=== PATIENT | female | born 1950 | race Caucasian/White ===

== ENCOUNTER 2016-04-19 14:00 | Outpatient (RCR) ==
--- NOTE | 2016-04-08 11:08 | RS.OPPTEV2 ---
Date of Note: 04/08/16 Visit #: 1 Date of Evaluation: 04/08/16 Payer Source: MEDICARE Date of Onset/Injury/Change in Status: 03/21/15 Surgery Performed?: No Treatment Diagnosis: LBP History of Condition/Mechanism of Injury:: She has had multple injuries to the coccygeal region over the past year. She has been seeing Dr. Canas for pain managment injections. She has had good success for about a month following her last injection. She was referred to PT for eval and treatment at this point. She states she has constant discomfort but that her intensity varies based on what she does and doesn't do. Shopping on concrete floors is very bad. She is having very poor sleep quality due to the pain. She states she doesn't sleep very much at all due to the pain and last night was unable to sleep more than an hr at most. Prior Level of Function.....Patient was independent with: ADL's, Self Care, Caregiving, Ambulation/Mobility, Community Integration/Access Level of Function: Independent in community. Functional Limitations: Sleep, Lifting, Carrying, Standing, Bending, Squatting, Ambulation, Community Access/Integration Treatment Side (optional): Right Medical History Medical History: Hypertension, Arthritis Surgical History: Knee Replacement, Shoulder Replacement Surgical History Comments:: shoulder surgery , kyphoplasty Smoking Status: Never smoker Hx Home Medications: Tamadol, Meloxicam Pain Assessment - Pain Description Pain Location: Right coccygeal pain that radiates into the right groin and adductor region of the thigh. Pain Description: Burning, Sharp Current Pain Intensity: 1/10 Worst Pain Intensity: 7/10 Functional Outcome Measure Oswestry LBP: 27 (54%) - G Codes & Severity Modifier G Codes & Modifier: Current: Mobility, Moving and Walking Around - CK. Goal: CJ Source of G Code score: Oswerrty Gait - Gait Pattern General Gait Pattern Observation: Ataxic Gait, Decrease Weight Bear (R), Decrease Weight Shift (R), Short Stance Time (R) General Range of Motion: BLE ROM WNLs. Muscle Strength: BLE strength WNLs. - ROM Lumbar Flexion: Hand reach to Mid-Thighs Sidebending to Left: Reach to Lateral Joint Line Sidebending to Right: Reach to Mid-thigh - Strength Trunk Flexion: 3+ Fair+ Trunk Rotation: 4 Good (Left lumbar rotation 4/5, right normal) - Special Tests SLR Test: Negative Left, Negative Right Seated Dural Stretch Test: Negative Left, Negative Right SI Joint Compression: Negative Palpation Palpation Findings: Tenderness (Muscle tightness of the lumbosacral region. ) Comments:: Tender points in the right hip adductor region. Sensation - Sensation Right Lower Extremity: Impaired (Numbness in the coccyx and right thigh intermittently.) Sensation Description: Numbness Interventions - Exercise/Activities/Manual Therapy Exercises/Activities: NA Manual Therapy: Myofascial stretching and moblization SI region tissue, TP releases of right hip adductor reigion tender points. - Charges Total Direct Minutes: 20 Total Treatment Time: 60 Procedures billed for this date of service:: PT [place] (Med) & manual therapy Assessment Assessment: Coccygeal area pain mainly right and right thigh pain causing antalgic gait intermittently and limitatin of activities. Patient Education: Education of diagnosis, Activity Modification, Education of Plan of Care Rehab Potential: Good Short Term Goals Goal #1: Intermittent pain/discomfort. Goal to be met by: 04/30/16 Goal #2: Patient is able to sleep 25% better due to decreased pain. Goal to be met by: 04/30/16 Goal #3: Patient reports she is able to tolerate shopping with min-mod pain. Goal to be met by: 04/30/16 Goal #4: Independent [facility] basic HEP. Goal to be met by: 04/30/16 Tobacco Hanger Goals Goal #1: Patient independent in HEP. Goal to be met by: 05/21/16 Goal #2: Patient sleeping 75% better due to decreased pain. Goal to be met by: 05/21/16 Goal #3: Pt to amb.functional distances w/o gt dev. Goal to be met by: 05/21/16 Goal #4: Oswestry score improved to 15/50 Goal to be met by: 05/21/16 Plan - Treatment to be Provided Procedures: Therapeutic Exercises, Therapeutic Activity, Gait Training, Manual Therapy, Massage, Patient Education Modalities: Electrical Stimulation, Ultrasound/Phonophoresis, Class IV Laser, Cryotherapy, Hot Packs, Mechanical Traction - Treatment Plan Frequency: 2-3X/wk Duration: 6 weeks ORDER # VISITS AND/OR THROUGH DATE: 05/21/2016 - Treatment Code (1) Low back pain Qualifiers: Chronicity: chronic Back pain laterality: right Sciatica presence: without sciatica Qualified Description: Chronic right-sided low back pain without sciatica Qualifier Code(s): (M54.5) Low back pain, (G89.29) Other chronic pain (2) Right thigh pain Comments: M79.856
--- NOTE | 2016-04-13 08:11 | RS.CXNS ---
Date of scheduled appointment: 04/13/16 Type: Cancel (Called yesterday and cancelled ,but reason unknown.)
--- NOTE | 2016-04-14 10:35 | RS.OPPTDN ---
Subjective Date of Note: 04/14/16 Visit #: 2 Date of Evaluation: 04/08/16 Payer Source: MEDICARE Treatment Diagnosis: LBP Current Subjective/complaints:: Reports R anterior thigh pain with walking,and coccyx pain with sitting of in supine. Pain Assessment - Pain Description Pain Location: Right coccygeal pain that radiates into the right groin and adductor region of the thigh.Reports walking alot yesterday. Pain Description: Burning, Sharp Current Pain Intensity: 2/10 - Heat/Cryotherapy Treatment: Hot Pack (20 mins. to R anterior/medial thigh,prior to exercises) Interventions - Exercise/Activities/Manual Therapy Exercises/Activities: 25 mins. total of pelvic tilts,SKTC,DKTC.Instructed in SI muscle energy techniques of resisted hip flexion,resisted knee extension in hooklying position.Patient education for sitting posture for pressure relief on the sacral region. Total minutes of Exercise: 25 Manual Therapy: NA Total minutes of Manual Therapy: 0 HOME EXERCISE PROGRAM: Pelvic tilts,SKTC,DKTC,SI muscle energy,postural awareness. - Charges Total Direct Minutes: 25 Total Treatment Time: 45 Procedures billed for this date of service:: hp,ex 2 Assessment: Patient reports relief from coccyx pain with pelvic tilts and SKTC .She also gives good return demo of exercises ,along with the SI muscle energy techniques.She is very attentive and reports less pain as she corrects her sitting posture today. Patient Education: Education of diagnosis, Body/Joint mechanics, Home Exercise Program, Home Safety, Activity Modification, Education of Plan of Care Patient demonstrates compliance with HEP?: Yes Short Term Goals Goal #1: Intermittent pain/discomfort. Goal to be met by: 04/30/16 Goal #2: Patient is able to sleep 25% better due to decreased pain. Goal to be met by: 04/30/16 Goal #3: Patient reports she is able to tolerate shopping with min-mod pain. Goal to be met by: 04/30/16 Goal #4: Independent wtih basic HEP. Goal to be met by: 04/30/16 Progress towards Goal:: Progressing Inventory Specialist Manager Goals Goal #1: Patient independent in HEP. Goal to be met by: 05/21/16 Goal #2: Patient sleeping 75% better due to decreased pain. Goal to be met by: 05/21/16 Goal #3: Pt to amb.functional distances w/o gt dev. Goal to be met by: 05/21/16 Goal #4: Oswestry score improved to 15/50 Goal to be met by: 05/21/16 Plan PLAN OF CARE EXPIRES ON:: 05/21/16 ORDER # VISITS AND/OR THROUGH DATE: 05/21/2016 PLAN: Continue Plan of Care
--- NOTE | 2016-04-16 11:33 | RS.OPPTDN ---
Subjective Date of Note: 04/16/16 Visit #: 3 Date of Evaluation: 04/08/16 Payer Source: MEDICARE Treatment Diagnosis: LBP Current Subjective/complaints:: Reports the coccyx is less painful today,but her back pain increases rather quickly when up on her feet. Pain Assessment - Pain Description Pain Location: Coccyx,R low back and T thigh. Pain Description: Burning, Sharp, Aching Current Pain Intensity: 1/10,coccyx,LBP varies - Heat/Cryotherapy Treatment: Hot Pack (20 mins.prior to exercises) Interventions - Exercise/Activities/Manual Therapy Exercises/Activities: 30 mins. total of pelvic tilts,SKTC,DKTC. SI muscle energy techniques of resisted hip flexion,resisted knee extension in hooklying position.Hip adductor stretching in supine.Patient education for sitting posture for pressure relief on the sacral region. Total minutes of Exercise: 30 Manual Therapy: NA Total minutes of Manual Therapy: 0 HOME EXERCISE PROGRAM: Pelvic tilts,SKTC,DKTC,SI muscle energy,postural awareness. - Charges Total Direct Minutes: 30 Total Treatment Time: 50 Procedures billed for this date of service:: hp,ex 2 Assessment: Patient has relief in the coccyx region more easily today,but the R hip /LE pain re-occurs rather quickly as she is walking.She was able to go approx. 150' before pain is present when entering clinic.She continues to be highly motivated to improve,very attentive and compliant to HEP.She did have discomfort ,described as stretch pain with R hip abducted in supine. Patient Education: Education of diagnosis, Body/Joint mechanics, Home Exercise Program, Home Safety, Activity Modification, Education of Plan of Care Patient demonstrates compliance with HEP?: Yes Short Term Goals Goal #1: Intermittent pain/discomfort. Goal to be met by: 04/30/16 Progress towards Goal:: Progressing Goal #2: Patient is able to sleep 25% better due to decreased pain. Goal to be met by: 04/30/16 Goal #3: Patient reports she is able to tolerate shopping with min-mod pain. Goal to be met by: 04/30/16 Goal #4: Independent [facility] basic HEP. Goal to be met by: 04/30/16 Progress towards Goal:: Progressing Plastic Surgery Manager Goals Goal #1: Patient independent in HEP. Goal to be met by: 05/21/16 Progress towards goal: Progressing Goal #2: Patient sleeping 75% better due to decreased pain. Goal to be met by: 05/21/16 Goal #3: Pt to amb.functional distances w/o gt dev. Goal to be met by: 05/21/16 Goal #4: Oswestry score improved to 15/50 Goal to be met by: 05/21/16 Plan PLAN OF CARE EXPIRES ON:: 05/21/16 ORDER # VISITS AND/OR THROUGH DATE: 05/21/2016 PLAN: Continue Plan of Care
--- NOTE | 2016-04-19 15:26 | RS.OPPTDN ---
Subjective Date of Note: 04/19/16 Visit #: 4 Date of Evaluation: 04/08/16 Payer Source: MEDICARE Treatment Diagnosis: LBP Current Subjective/complaints:: Reports hurting a little more currently,but has been on her feet alot today.She is doing her HEP. Pain Assessment - Pain Description Pain Location: Coccyx,R low back and T thigh. Pain Description: Burning, Sharp, Aching Current Pain Intensity: 2/10,coccyx,R LBP and R thigh 3/10 - Heat/Cryotherapy Treatment: Hot Pack (20 mins. to lumbar ,prior to exercises) Interventions - Exercise/Activities/Manual Therapy Exercises/Activities: 30 mins. total of pelvic tilts,SKTC,DKTC. SI muscle energy techniques of resisted hip flexion,resisted knee extension in hooklying position.Hip adductor stretching in supine.,after contract-relax method to this same muscle group. Total minutes of Exercise: 30 Manual Therapy: NA Total minutes of Manual Therapy: 0 HOME EXERCISE PROGRAM: Pelvic tilts,SKTC,DKTC,SI muscle energy,postural awareness. - Charges Total Direct Minutes: 30 Total Treatment Time: 50 Procedures billed for this date of service:: hp,ex 2 Assessment: Patient reports sligthly elevated pain today in the R htigh with standing ,as opposed to before treatment.The coccyx pain is relieved by change of position,and is decreased overall since injections at Dr. Canas's approx. one month ago.She only reports stretch discomfort with R hip abducted to normal end range when in supine today.The sharp pain continues to be with weight -bearing. Patient Education: Education of diagnosis, Body/Joint mechanics, Home Exercise Program, Home Safety, Activity Modification, Education of Plan of Care Patient demonstrates compliance with HEP?: Yes Short Term Goals Goal #1: Intermittent pain/discomfort. Goal to be met by: 04/30/16 (elevated after session today) Progress towards Goal:: Regressing Goal #2: Patient is able to sleep 25% better due to decreased pain. Goal to be met by: 04/30/16 Progress towards Goal:: No Change Goal #3: Patient reports she is able to tolerate shopping with min-mod pain. Goal to be met by: 04/30/16 Progress towards Goal:: No Change Goal #4: Independent wtih basic HEP. Goal to be met by: 04/30/16 Progress towards Goal:: Progressing Sandfill Operator Goals Goal #1: Patient independent in HEP. Goal to be met by: 05/21/16 Progress towards goal: Progressing Goal #2: Patient sleeping 75% better due to decreased pain. Goal to be met by: 05/21/16 Goal #3: Pt to amb.functional distances w/o gt dev. Goal to be met by: 05/21/16 Goal #4: Oswestry score improved to 15/50 Goal to be met by: 05/21/16 Plan PLAN OF CARE EXPIRES ON:: 05/21/16 ORDER # VISITS AND/OR THROUGH DATE: 05/21/2016 PLAN: Continue Plan of Care
== END 2016-04-20 ==
PROVIDERS: ATTEND Nurse Practitioner
DX: M48.06 Spinal stenosis, lumbar region (principal); M54.5 Low back pain; G89.29 Other chronic pain; M79.651 Pain in right thigh

== ENCOUNTER 2016-05-14 13:00 | Outpatient (RCR) ==
--- NOTE | 2016-04-22 16:44 | RS.OPPTDN ---
Subjective Date of Note: 04/22/16 Visit #: 3 Date of Evaluation: 04/08/16 Payer Source: MEDICARE Treatment Diagnosis: LBP Current Subjective/complaints:: Patient c/o increased pain since her last session. She wonders if stretching elevated her pain. She c/o soreness to the R upper thigh and in coccyx region. She does say heat relieves and wants to continue prior to therex. Pain Assessment - Pain Description Pain Location: Coccyx,R low back and T thigh. Current Pain Intensity: Increased today - Heat/Cryotherapy Treatment: Hot Pack (20 mins and during therex. mid to low back in supine) Interventions - Exercise/Activities/Manual Therapy Exercises/Activities: 22 mins. total of passive stretching (gentle) to SKTC, HS , Piriformis bilaterally x 3. Patient performs trunk exercises of : Pelvic tilts, Pillow squeezes, isometric hip flexion/abd, QS, and SLR. All x 12 reps. Manual Therapy: NA HOME EXERCISE PROGRAM: Pelvic tilts,SKTC,DKTC,SI muscle energy,postural awareness. - Charges Total Direct Minutes: 22 Total Treatment Time: 32 Procedures billed for this date of service:: hp, yudi Assessment: Patient with elevated pain since last session. Modified therex slightly and more gentler exercises which eased pain today. Patient Education: Education of diagnosis, Body/Joint mechanics, Home Exercise Program, Home Safety, Activity Modification, Education of Plan of Care Patient demonstrates compliance with HEP?: Yes Short Term Goals Goal #1: Intermittent pain/discomfort. Goal to be met by: 04/30/16 (elevated after session today) Progress towards Goal:: Regressing Goal #2: Patient is able to sleep 25% better due to decreased pain. Goal to be met by: 04/30/16 Progress towards Goal:: No Change Goal #3: Patient reports she is able to tolerate shopping with min-mod pain. Goal to be met by: 04/30/16 Progress towards Goal:: No Change Goal #4: Independent wtih basic HEP. Goal to be met by: 04/30/16 Progress towards Goal:: Progressing Group Home Goals Goal #1: Patient independent in HEP. Goal to be met by: 05/21/16 Progress towards goal: Progressing Goal #2: Patient sleeping 75% better due to decreased pain. Goal to be met by: 05/21/16 Goal #3: Pt to amb.functional distances w/o gt dev. Goal to be met by: 05/21/16 Goal #4: Oswestry score improved to 15/50 Goal to be met by: 05/21/16 Plan PLAN OF CARE EXPIRES ON:: 05/21/16 ORDER # VISITS AND/OR THROUGH DATE: 05/21/2016 PLAN: Progress Exercises
--- NOTE | 2016-04-27 12:03 | RS.CXNS ---
Date of scheduled appointment: 04/27/16 Reason for Cancel/NS: flu
--- NOTE | 2016-04-29 15:35 | RS.OPPTDN ---
Subjective Date of Note: 04/29/16 Visit #: 6 Date of Evaluation: 04/08/16 Payer Source: MEDICARE Treatment Diagnosis: LBP Current Subjective/complaints:: Patient doing well today. Reports no pain during exercises today. She is performing her exercises at home. Following exercises today, reports no increased pain when she sat up from supine. Pain Assessment - Pain Description Pain Location: Coccyx,R low back and T thigh. Current Pain Intensity: minimal - Heat/Cryotherapy Treatment: Hot Pack (X 20 mins to lumbar/sacral region) Interventions - Exercise/Activities/Manual Therapy Exercises/Activities: 28 mins. total of passive stretching (gentle) to SKTC, HS , Piriformis bilaterally x 3. Patient performs trunk exercises of : Pelvic tilts, Pillow squeezes, isometric hip flexion, yellow band for light resisted hip abd, QS, and SLR, bridging. All x 10 reps. Total minutes of Exercise: 28 mins Manual Therapy: NA HOME EXERCISE PROGRAM: Pelvic tilts,SKTC,DKTC,SI muscle energy,postural awareness. - Objective Findings Observations,measurements,etc.: Demonstrates forward posture at hips/lumbar during ambulation. - Charges Total Direct Minutes: 28 mins Total Treatment Time: 48 mins Procedures billed for this date of service:: HP, EX2 Assessment: Mrs. Diallo tolerates all exercises well. After sitting up from supine, she reports no signficant discomfort. She demonstrates needed progression of exercises to lumbar and pelvic stability to decrease her pain. Patient demonstrates compliance with HEP?: Yes Short Term Goals Goal #1: Intermittent pain/discomfort. Goal to be met by: 04/30/16 Progress towards Goal:: Progressing Goal #2: Patient is able to sleep 25% better due to decreased pain. Goal to be met by: 04/30/16 Progress towards Goal:: No Change Goal #3: Patient reports she is able to tolerate shopping with min-mod pain. Goal to be met by: 04/30/16 Progress towards Goal:: No Change Goal #4: Independent [facility] basic HEP. Goal to be met by: 04/30/16 Progress towards Goal:: Progressing Detention Goals Goal #1: Patient independent in HEP. Goal to be met by: 05/21/16 Progress towards goal: Progressing Goal #2: Patient sleeping 75% better due to decreased pain. Goal to be met by: 05/21/16 Goal #3: Pt to amb.functional distances w/o gt dev. Goal to be met by: 05/21/16 Goal #4: Oswestry score improved to 15/50 Goal to be met by: 05/21/16 Plan PLAN OF CARE EXPIRES ON:: 05/21/16 ORDER # VISITS AND/OR THROUGH DATE: 05/21/2016 PLAN: Progress Exercises
--- NOTE | 2016-05-04 16:40 | RS.OPPTDN ---
Subjective Date of Note: 05/04/16 Visit #: 7 Date of Evaluation: 04/08/16 Payer Source: MEDICARE Treatment Diagnosis: LBP Current Subjective/complaints:: Patient says exercises seem to be helping. She says she feels better than last week. States she still has trouble sleeping, but it is related to arms falling asleep. Pain Assessment - Pain Description Pain Location: Coccyx,R low back and T thigh. Current Pain Intensity: minimal - Heat/Cryotherapy Treatment: Hot Pack (15 mins to the mid to low back in supine) Interventions - Exercise/Activities/Manual Therapy Exercises/Activities: 28 mins. total of passive stretching (gentle) to SKTC, HS , Piriformis bilaterally x 3. Patient performs trunk exercises of : Pelvic tilts, Pillow squeezes, isometric hip flexion, yellow band for light resisted hip abd, QS, and SLR, bridging. All increased to 2 x 10 reps. Manual Therapy: NA HOME EXERCISE PROGRAM: Pelvic tilts,SKTC,DKTC,SI muscle energy,postural awareness. - Charges Total Direct Minutes: 28 Total Treatment Time: 43 Procedures billed for this date of service:: hp, ex2 Assessment: Patient linn all progressive therex well. She had some cramping to bilateral HS and calves with bridging and SLR, so the reps were lessened for rest breaks. Patient Education: Education of diagnosis, Body/Joint mechanics, Home Exercise Program, Home Safety, Activity Modification, Education of Plan of Care Patient demonstrates compliance with HEP?: Yes Short Term Goals Goal #1: Intermittent pain/discomfort. Goal to be met by: 04/30/16 Progress towards Goal:: Progressing Goal #2: Patient is able to sleep 25% better due to decreased pain. Goal to be met by: 04/30/16 Progress towards Goal:: Progressing Comments:: this is not due to her back Goal #3: Patient reports she is able to tolerate shopping with min-mod pain. Goal to be met by: 04/30/16 Progress towards Goal:: No Change Goal #4: Independent wtih basic HEP. Goal to be met by: 04/30/16 Progress towards Goal:: Progressing Complex Manager Goals Goal #1: Patient independent in HEP. Goal to be met by: 05/21/16 Progress towards goal: Progressing Goal #2: Patient sleeping 75% better due to decreased pain. Goal to be met by: 05/21/16 Goal #3: Pt to amb.functional distances w/o gt dev. Goal to be met by: 05/21/16 Goal #4: Oswestry score improved to 15/50 Goal to be met by: 05/21/16 Plan PLAN OF CARE EXPIRES ON:: 05/21/16 ORDER # VISITS AND/OR THROUGH DATE: 05/21/2016 PLAN: Progress Exercises
--- NOTE | 2016-05-06 16:46 | RS.OPPTDN ---
Subjective Date of Note: 05/06/16 Visit #: 3 Date of Evaluation: 04/08/16 Payer Source: MEDICARE Treatment Diagnosis: LBP Current Subjective/complaints:: Patient says her back is doing better, but she is having soreness to the R inner thigh. She says she is performing HEP too without difficulty. Pain Assessment - Pain Description Pain Location: no longer in the back, but to the R inner thigh Current Pain Intensity: minimal - Heat/Cryotherapy Treatment: Hot Pack (mid to low back in supine x 20 mins ) Interventions - Exercise/Activities/Manual Therapy Exercises/Activities: 28 mins. total of passive stretching (gentle) to SKTC, HS , Piriformis bilaterally x 3. Patient performs trunk exercises of : Pelvic tilts, Pillow squeezes, isometric hip flexion,progressed to red band for resisted hip abd, QS, and SLR, bridging, pelvic tilts, SAQ with 2#, DF with green tband. All increased to 2 x 10 reps. Green tband for therapy stick scap retraction. Manual Therapy: NA HOME EXERCISE PROGRAM: Pelvic tilts,SKTC,DKTC,SI muscle energy,postural awareness. - Charges Total Direct Minutes: 28 Total Treatment Time: 43 Procedures billed for this date of service:: hp, ex2 Assessment: Patient has demonstrated improved ease of all therex and little to no back pain. She still has some soreness into the R groin. Patient Education: Education of diagnosis, Body/Joint mechanics, Home Exercise Program, Home Safety, Activity Modification, Education of Plan of Care Patient demonstrates compliance with HEP?: Yes Short Term Goals Goal #1: Intermittent pain/discomfort. Goal to be met by: 04/30/16 Progress towards Goal:: Progressing Goal #2: Patient is able to sleep 25% better due to decreased pain. Goal to be met by: 04/30/16 Progress towards Goal:: Progressing Goal #3: Patient reports she is able to tolerate shopping with min-mod pain. Goal to be met by: 04/30/16 Progress towards Goal:: No Change Goal #4: Independent wtih basic HEP. Goal to be met by: 04/30/16 Progress towards Goal:: Progressing Integrated Marketing Specialist Goals Goal #1: Patient independent in HEP. Goal to be met by: 05/21/16 Progress towards goal: Progressing Goal #2: Patient sleeping 75% better due to decreased pain. Goal to be met by: 05/21/16 Goal #3: Pt to amb.functional distances w/o gt dev. Goal to be met by: 05/21/16 Goal #4: Oswestry score improved to 15/50 Goal to be met by: 05/21/16 Plan PLAN OF CARE EXPIRES ON:: 05/21/16 ORDER # VISITS AND/OR THROUGH DATE: 05/21/2016 PLAN: Progress Exercises
--- NOTE | 2016-05-11 14:34 | RS.OPPTDN ---
Subjective Date of Note: 05/11/16 Visit #: 9 Date of Evaluation: 04/08/16 Payer Source: MEDICARE Treatment Diagnosis: LBP Current Subjective/complaints:: Patient says her tailbone pain is very little to none. She she does have R thigh soreness/weakness. Pain Assessment - Pain Description Pain Location: no longer in the back, but to the R inner thigh Current Pain Intensity: minimal - Heat/Cryotherapy Treatment: Hot Pack (15 mins to mid to low back and during stretching supine) Interventions - Exercise/Activities/Manual Therapy Exercises/Activities: 28 mins. total of passive stretching (gentle) to SKTC, HS , Piriformis bilaterally x 3. Patient performs trunk exercises of : Pelvic tilts, Pillow squeezes, isometric hip flexion,progressed to red band for resisted hip abd, QS, and SLR, bridging, pelvic tilts, SAQ with 2#, DF with green tband. All increased to 2 x 10 reps. Green tband for therapy stick scap retraction. Manual Therapy: NA HOME EXERCISE PROGRAM: Pelvic tilts,SKTC,DKTC,SI muscle energy,postural awareness. - Charges Total Direct Minutes: 28 Total Treatment Time: 43 Procedures billed for this date of service:: hp, ex2 Assessment: Patient has progressed with decreased to no back pain, but does have weakness to the R thigh (anteriorally). All flexibility appears WNL today , but continues to need trunk strengthening. Patient Education: Education of diagnosis, Body/Joint mechanics, Home Exercise Program, Home Safety, Activity Modification, Education of Plan of Care Patient demonstrates compliance with HEP?: Yes Short Term Goals Goal #1: Intermittent pain/discomfort. Goal to be met by: 04/30/16 Progress towards Goal:: Progressing Goal #2: Patient is able to sleep 25% better due to decreased pain. Goal to be met by: 04/30/16 Progress towards Goal:: Progressing Goal #3: Patient reports she is able to tolerate shopping with min-mod pain. Goal to be met by: 04/30/16 Progress towards Goal:: No Change Goal #4: Independent wtih basic HEP. Goal to be met by: 04/30/16 Progress towards Goal:: Progressing Test Kitchen Home Economist Goals Goal #1: Patient independent in HEP. Goal to be met by: 05/21/16 Progress towards goal: Progressing Goal #2: Patient sleeping 75% better due to decreased pain. Goal to be met by: 05/21/16 Goal #3: Pt to amb.functional distances w/o gt dev. Goal to be met by: 05/21/16 Goal #4: Oswestry score improved to 15/50 Goal to be met by: 05/21/16 Plan PLAN OF CARE EXPIRES ON:: 05/21/16 ORDER # VISITS AND/OR THROUGH DATE: 05/21/2016 PLAN: Progress Exercises
--- NOTE | 2016-05-18 13:40 | RS.OPPTDN ---
Subjective Date of Note: 05/14/16 Visit #: 10 Date of Evaluation: 04/08/16 Payer Source: MEDICARE Treatment Diagnosis: LBP Current Subjective/complaints:: Patient c/o increased soreness to the R inner thigh. She says she was up early this morning with it. She says it has calmed slightly, but still her C/c. Reports back pain is not present. Pain Assessment - Pain Description Pain Location: no longer in the back, but to the R inner thigh Current Pain Intensity: R inner thigh pain - Heat/Cryotherapy Treatment: Hot Pack (20 mins to mid to low back and to the R inner thigh supine) Interventions - Exercise/Activities/Manual Therapy Exercises/Activities: 20 mins. total of passive stretching (gentle) to SKTC, HS , Piriformis bilaterally x 3. Patient performs trunk exercises of : Pelvic tilts, Pillow squeezes, isometric hip flexion. bridging, SAQ with 2#, DF with green tband. All increased to 2 x 10 reps. Green tband for therapy stick scap retraction. Abbreviated therex due to c/o. Manual Therapy: NA HOME EXERCISE PROGRAM: Pelvic tilts,SKTC,DKTC,SI muscle energy,postural awareness. - Charges Total Direct Minutes: 20 Total Treatment Time: 40 Procedures billed for this date of service:: hp, ex Assessment: Patient experiencing increased R adductor pain. Pain to the low back and coccyx is little to none. She is progressing with therex well, but did avoid some today due to R LE pain. Patient Education: Education of diagnosis, Body/Joint mechanics, Home Exercise Program, Home Safety, Activity Modification, Education of Plan of Care Patient demonstrates compliance with HEP?: Yes Short Term Goals Goal #1: Intermittent pain/discomfort. Goal to be met by: 04/30/16 Progress towards Goal:: Progressing Goal #2: Patient is able to sleep 25% better due to decreased pain. Goal to be met by: 04/30/16 Progress towards Goal:: Met Goal #3: Patient reports she is able to tolerate shopping with min-mod pain. Goal to be met by: 04/30/16 Progress towards Goal:: Progressing Goal #4: Independent wtih basic HEP. Goal to be met by: 04/30/16 Progress towards Goal:: Progressing Residential Goals Goal #1: Patient independent in HEP. Goal to be met by: 05/21/16 Progress towards goal: Progressing Goal #2: Patient sleeping 75% better due to decreased pain. Goal to be met by: 05/21/16 Progress towards goal: Progressing Goal #3: Pt to amb.functional distances w/o gt dev. Goal to be met by: 05/21/16 Goal #4: Oswestry score improved to 15/50 Goal to be met by: 05/21/16 Plan PLAN OF CARE EXPIRES ON:: 05/21/16 ORDER # VISITS AND/OR THROUGH DATE: 05/21/2016 PLAN: Progress Exercises
--- NOTE | 2016-05-24 15:26 | RS.PTSUM ---
Progress Note/Summary Date of Note: 05/21/16 Date of Evaluation: 04/08/16 Number of Visits: 10 Reporting Period for this Progress Note: 04/08/16 through 05/14/16 Current Complaints/Gains: Patient reports less back and SI joint pain, but now her c/c is right groin soreness. Patient is performing exercises at home and feels it has helped. Objective Measurements/Presentation: Demonstrates improved flexibility with piriformis and HS. Oswestry score is slightly improved. G Codes: Mobility current CK. Mobility goal CJ Source of G Code Score: Oswestry LBP scale 40% impairment. - Short Term Goals Goal #1: Intermittent pain/discomfort. Goal to be met by: 04/30/16 Progress towards Goal:: Progressing Goal #2: Patient is able to sleep 25% better due to decreased pain. Goal to be met by: 04/30/16 Progress towards Goal:: Met Goal #3: Patient reports she is able to tolerate shopping with min-mod pain. Goal to be met by: 04/30/16 Progress towards Goal:: Progressing Goal #4: Independent [facility] basic HEP. Goal to be met by: 04/30/16 Progress towards Goal:: Progressing - [facility] Goals Goal #1: Patient independent in HEP. Goal to be met by: 05/21/16 Progress towards goal: Progressing Goal #2: Patient sleeping 75% better due to decreased pain. Goal to be met by: 05/21/16 Progress towards goal: Progressing Goal #3: Pt to amb.functional distances w/o gt dev. Goal to be met by: 05/21/16 Progress towards goal: Met Goal #4: Oswestry score improved to 15/50 Goal to be met by: 05/21/16 Progress towards goal: Partially Met - Assessment Assessment of Improvement/Progress: Will continue for 1-2 more sessions for continued stretching and summary of HEP. Summary: Patient has made progress towards goals., Patient demonstrates potential to gain increased function with therapy - Plan Plan: Complete remaining visits on current order. PLAN OF CARE EXPIRES ON:: 05/21/16 ORDER # VISITS AND/OR THROUGH DATE: 05/21/2016
== END 2016-05-18 ==
PROVIDERS: ATTEND Nurse Practitioner
DX: M48.00 Spinal stenosis, site unspecified (principal); M54.5 Low back pain

== ENCOUNTER 2016-05-21 14:00 | Outpatient (RCR) ==
--- NOTE | 2016-05-19 15:26 | RS.OPPTDN ---
Subjective Date of Note: 05/19/16 Visit #: 11 Date of Evaluation: 04/08/16 Payer Source: MEDICARE Treatment Diagnosis: LBP Current Subjective/complaints:: Patient reports therapy is helping her. States her pain is better, she is able to walk further, and is sleeping better. States she is working on HEP. Pain Assessment - Pain Description Pain Location: no longer in the back, but to the R inner thigh Current Pain Intensity: R inner thigh pain - Heat/Cryotherapy Treatment: Hot Pack ([id number] to the lowback and right thigh prior to EX. Patient in supine. ) Interventions - Exercise/Activities/Manual Therapy Exercises/Activities: 25mins. Assisted with SKTC, DKTC, HS, Piriformis, and gentle trunk rotation. Pelvic tilts, Pillow squeezes, isometric hip flexion. Bridging. SLR. Ended with additional stretching and side-lying DKTC stretch. In sitting, green tband for scapular retraction and hip abduction. Began scapular retaction in standing with green theraband. Total minutes of Exercise: 25mins Manual Therapy: NA HOME EXERCISE PROGRAM: Pelvic tilts, SKTC, DKTC, SI muscle energy, postural awareness. Scapular retraction in sitting or standing - Charges Total Direct Minutes: 25mins Total Treatment Time: 45mins Procedures billed for this date of service:: HP, EX2 Assessment: Patient continues to report imprvement in pain and with functional activities. She appears to be working on HEP and motivated to progress. Patient Education: Home Exercise Program, Activity Modification Comments: Reviwed safe posture and sitting or kneeling postions when performing limited gardening. Patient demonstrates compliance with HEP?: Yes Short Term Goals Goal #1: Intermittent pain/discomfort. Goal to be met by: 04/30/16 Progress towards Goal:: Progressing Goal #2: Patient is able to sleep 25% better due to decreased pain. Goal to be met by: 04/30/16 Progress towards Goal:: Met Goal #3: Patient reports she is able to tolerate shopping with min-mod pain. Goal to be met by: 04/30/16 Progress towards Goal:: Met Goal #4: Independent wt basic HEP. Goal to be met by: 04/30/16 Progress towards Goal:: Met Product Support Specialist Goals Goal #1: Patient independent in HEP. Goal to be met by: 05/21/16 Progress towards goal: Progressing Goal #2: Patient sleeping 75% better due to decreased pain. Goal to be met by: 05/21/16 Progress towards goal: Progressing Goal #3: Pt to amb.functional distances w/o gt dev. Goal to be met by: 05/21/16 Progress towards goal: Progressing Goal #4: Oswestry score improved to 15/50 Goal to be met by: 05/21/16 Progress towards goal: Progressing Plan PLAN OF CARE EXPIRES ON:: 05/21/16 ORDER # VISITS AND/OR THROUGH DATE: 05/21/2016 PLAN: Continue Plan of Care (Continue progression of HEP.)
--- NOTE | 2016-05-21 15:14 | RS.OPPTDN ---
Subjective Date of Note: 05/21/16 Visit #: 12 Date of Evaluation: 04/08/16 Payer Source: MEDICARE Treatment Diagnosis: LBP Current Subjective/complaints:: Patient reports she has done well with therapy and will continue HEP. 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 Reports no increased back pain with walking today. Right medial thigh and groin pain is improving. Pain Assessment - Pain Description Pain Location: no longer in the back, but to the R inner thigh Current Pain Intensity: R inner thigh pain - Heat/Cryotherapy Treatment: Hot Pack ([id number] to lowback and right medial thigh prior to EX. Patient in supine. ) Interventions - Exercise/Activities/Manual Therapy Exercises/Activities: 25mins. Assisted with SKTC, DKTC, HS, Piriformis, and gentle trunk rotation. Pelvic tilts, Pillow squeezes, isometric hip flexion, pelvic tilt, Bridging, SLR. Ended with additional stretching. In sitting, green tband for scapular retraction and hip abduction. Total minutes of Exercise: 25mins Manual Therapy: NA HOME EXERCISE PROGRAM: Pelvic tilts, SKTC, DKTC, SI muscle energy, postural awareness. Scapular retraction in sitting or standing - Charges Total Direct Minutes: 25mins Total Treatment Time: 45mins Procedures billed for this date of service:: HP, EX2 Assessment: Patient has progressed well and benefitted from treatment. Met 6 of 8 treatment goals. Patient Education: Body/Joint mechanics, Home Exercise Program, Activity Modification Comments: Reviewed all patient education and HEP. Patient given additional therabands. Patient demonstrates compliance with HEP?: Yes Short Term Goals Goal #1: Intermittent pain/discomfort. Goal to be met by: 04/30/16 Progress towards Goal:: Met Goal #2: Patient is able to sleep 25% better due to decreased pain. Goal to be met by: 04/30/16 Progress towards Goal:: Met Goal #3: Patient reports she is able to tolerate shopping with min-mod pain. Goal to be met by: 04/30/16 Progress towards Goal:: Met Goal #4: Independent [facility] basic HEP. Goal to be met by: 04/30/16 Progress towards Goal:: Met Research Microbiologist Goals Goal #1: Patient independent in HEP. Goal to be met by: 05/21/16 Progress towards goal: Met Goal #2: Patient sleeping 75% better due to decreased pain. Goal to be met by: 05/21/16 Progress towards goal: Progressing Goal #3: Pt to amb.functional distances w/o gt dev. Goal to be met by: 05/21/16 Progress towards goal: Met Goal #4: Oswestry score improved to 15/50 Goal to be met by: 05/21/16 Progress towards goal: Progressing Plan PLAN OF CARE EXPIRES ON:: 05/21/16 ORDER # VISITS AND/OR THROUGH DATE: 05/21/2016 PLAN: Plan for Discharge (Discharge with HEP.)
--- NOTE | 2016-06-14 10:32 | RS.OPPTDC ---
Date of Discharge: 05/21/16 Date of Evaluation: 04/08/16 Number of Visits: 12 Treatment Diagnosis: LBP Current Complaints/Gains: Patient reports much less low back or SI pain. States it is down to minimal. States right groin pain and soreness continues, but is improving. States she has not had increased back pain since wearing a back brace with activity. Functional Outcome Measure Oswestry LBP: 40 - G Codes & Severity Modifier G Codes & Modifier: Mobility goal CJ. Mobility D/C CK Source of G Code score: Oswestry LBP Interventions - Exercise/Activities/Manual Therapy Exercises/Activities: NA Manual Therapy: NA HOME EXERCISE PROGRAM: Pelvic tilts, SKTC, DKTC, SI muscle energy, postural awareness. Scapular retraction in sitting or standing - Objective Findings Observations,measurements,etc.: Patient demonstrates improved flexibility. She is independent with HEP. Demonstrates good Hamstring length. - Charges Total Direct Minutes: NA Total Treatment Time: NA Procedures billed for this date of service:: NA Assessment Assessment: Patient reports decreased low back or SI pain. She is able to be more active without increased back pain since using a back support/brace. She is independent with return demonstration of HEP and she is confident that she can continue the exercises on her own. Short Term Goals Goal #1: Intermittent pain/discomfort. Goal to be met by: 04/30/16 Progress towards Goal:: Met Goal #2: Patient is able to sleep 25% better due to decreased pain. Goal to be met by: 04/30/16 Progress towards Goal:: Met Goal #3: Patient reports she is able to tolerate shopping with min-mod pain. Goal to be met by: 04/30/16 Progress towards Goal:: Met Goal #4: Independent [facility] basic HEP. Goal to be met by: 04/30/16 Progress towards Goal:: Met Patient Service Coordinator Goals Goal #1: Patient independent in HEP. Goal to be met by: 05/21/16 Progress towards goal: Met Goal #2: Patient sleeping 75% better due to decreased pain. Goal to be met by: 05/21/16 Progress towards goal: Partially Met Goal #3: Pt to amb.functional distances w/o gt dev. Goal to be met by: 05/21/16 Progress towards goal: Met Goal #4: Oswestry score improved to 15/50 Goal to be met by: 05/21/16 Progress towards goal: Not Met Comments: Score of 20/50 Plan Reason for Discharge:: No Further Skilled Therapy Indicated
== END 2016-06-18 ==
PROVIDERS: ATTEND Nurse Practitioner
DX: M48.00 Spinal stenosis, site unspecified (principal); M54.5 Low back pain